=== PATIENT | male | born 1945 | race Caucasian/White ===

== ENCOUNTER 2019-01-09 11:00 | Inpatient (IN) | payer MEDICARE, OTHER | END 2019-01-10 16:50 | disposition home or self-care (01) | LOC: SUR 11:00 → WEST WING 16:13 | PROC: 0V508ZZ Destruction of Prostate, Via Natural or Artificial Opening Endoscopic (ICD-10-PCS; principal; 2019-01-09 12:01) | DX: N40.1 Benign prostatic hyperplasia with lower urinary tract symptoms (principal); R33.8 Other retention of urine ==